=== PATIENT | female | born 1990 | race Caucasian/White ===

== ENCOUNTER 2019-03-08 16:03 | Emergency (ER) | payer OTHER ==
--- NOTE | 2019-03-08 18:53 | UC ---
Lower Extremity/Ankle HPI - HPI Summary HPI Summary: 28-year-old female presents with complaints of left great toe pain. States 2 days ago she accidentally tripped while descending some stairs causing and abrasion to the tip of her left great toe. States she did not immediately cleanse the wound with today after cleaning with some hydrogen peroxide. States over the past 2 days she has noticed some increased pain and swelling. Reports full painless range of motion to the toe. Able to walk and bear weight without difficulties. Denies fever, chills, numbness, or tingling. - History of Current Complaint Chief Complaint: EDLacSutureRecheck Stated Complaint: LT FOOT INJURY PER PT Time Seen by Provider: 03/08/19 18:40 Hx Obtained From: Patient Pain Intensity: 8 - Allergies/Home Medications Allergies/Adverse Reactions: Allergies Allergy/AdvReac Type Severity Reaction Status Date / Time No Known Allergies Allergy Verified 03/08/19 16:19 Home Medications: Home Medications NK [No Home Medications Reported] 03/08/19 [History Confirmed 03/08/19] PMH/Surg Hx/FS Hx/Imm Hx Previously Healthy: Yes - Denies significant PMH - Surgical History Surgical History: None - Family History Known Family History: Positive: Non-Contributory - Social History Occupation: Student Lives: With Family Alcohol Use: Occasionally Substance Use Type: None Smoking Status (MU): Current Some Day Smoker Review of Systems All Other Systems Reviewed And Are Negative: Yes Constitutional: Negative: Fever, Chills Skin: Positive: Other - See HPI Respiratory: Positive: Negative Cardiovascular: Positive: Negative Gastrointestinal: Positive: Negative Genitourinary: Positive: Negative Motor: Negative: Weakness Neurovascular: Negative: Decreased Sensation Musculoskeletal: Negative: Arthralgia Neurological: Positive: Negative Is Patient Immunocompromised?: No Physical Exam - Summary Physical Exam Summary: GENERAL APPEARANCE: Well developed, well nourished, alert and cooperative, and appears to be in no acute distress. CARDIAC: Normal S1 and S2. No S3, S4 or murmurs. Rhythm is regular. There is no peripheral edema, cyanosis or pallor. Extremities are warm and well perfused. Capillary refill is less than 2 seconds. Peripheral pulses intact. LUNGS: Clear to auscultation without rales, rhonchi, wheezing or diminished breath sounds. ABDOMEN: Positive bowel sounds. Soft, nondistended, nontender. No guarding or rebound. No masses or hepatosplenomegally. MUSKULOSKELETAL: ROM intact to all extremities. No joint erythema or tenderness. Normal muscular development. Normal gait. EXTREMITIES: Superficial abrasion to the medial tip of the left great toe with mild erythema, tenderness, and edema involving the distal portion of lateral nailfold. No drainage noted. Full ROM to left great toe. Circulation and sensation intact. SKIN: Skin normal color, texture and turgor. Triage Information Reviewed: Yes Vital Signs: Initial Vital Signs Temp 98.3 F 03/08/19 16:16 Pulse 76 03/08/19 16:16 Resp 16 03/08/19 16:16 BP 145/95 03/08/19 16:16 Pulse Ox 99 03/08/19 16:16 Vital Signs Reviewed: Yes Lower Extremity Course/Dx - Course Course Of Treatment: 28-year-old female presents with complaints of left great toe pain. States 2 days ago she accidentally tripped while descending some stairs causing and abrasion to the tip of her left great toe. States she did not immediately cleanse the wound with today after cleaning with some hydrogen peroxide. States over the past 2 days she has noticed some increased pain and swelling. Reports full painless range of motion to the toe. Able to walk and bear weight without difficulties. Denies fever, chills, numbness, or tingling. Afebrile. Hypertensive otherwise vital signs stable. Patient had superficial abrasion to the medial tip of the left great toe with mild erythema, tenderness, and edema involving the distal portion of lateral nailfold. No drainage noted. Full ROM to left great toe. Circulation and sensation intact. Remainder of exam was unremarkable. A clean gauze dressing was applied by the RN. Recommending treatment for an infected abrasion of the left great toe with cephalexin 500 mg 1 capsule 3 times a day 7 days as well as [id number] analgesics as needed for pain. She is to follow-up with the primary care provider in 3-5 days if symptoms are not improving. Anticipatory guidance and warning symptoms are reviewed with the patient. Verbalized understanding and agrees with plan of care. - Differential Dx/Diagnosis Differential Diagnosis/HQI/PQRI: Fracture (Closed), Infection, Sprain, Other - laceration, abrasion Provider Diagnosis: Infected abrasion of great toe of left foot Discharge - Sign-Out/Discharge Documenting (check all that apply): Patient Departure Patient Received Moderate/Deep Sedation with Procedure: No - Discharge Plan Condition: Stable Disposition: HOME Patient Education Materials: Abrasion (ED) Referrals: No Primary Care Phys,NOPCP [Primary Care Provider] - Additional Instructions: You appear to have a infection of the abrasion to the tip of her left great toe. We will stretch on an antibiotic to treat the infection. Start cephalexin (Keflex) 500 mg 1 capsule 3 times a day for 7 days. Be sure to take the entire prescription even if feeling better. Continue to take acetaminophen (Tylenol) or ibuprofen (Advil, Motrin) according to directions as needed for pain. Follow-up with your primary care provider in 3-5 days if symptoms are not improving. Seek immediate medical attention if you develop a fever greater than 100.5 F, you have severe pain that is not managed with acetaminophen or ibuprofen, redness that spreads, increased swelling, numbness or tingling in the toe, or any worsening of symptoms. - Billing Disposition and Condition Condition: STABLE Disposition: Home
[2019-03-08 19:11] VITALS: BP 149/103
== END 2019-03-08 19:10 | disposition home or self-care (01) ==
LOC: ED 16:03
DX: S90.412A Abrasion, left great toe, initial encounter (principal); L08.9 Local infection of the skin and subcutaneous tissue, unspecified; W01.198A Fall on same level from slipping, tripping and stumbling with subsequent striking against other object, initial encounter; Y92.9 Unspecified place or not applicable; R03.0 Elevated blood-pressure reading, without diagnosis of hypertension; Z72.0 Tobacco use
CPT/HCPCS: 99282